=== PATIENT | female | born 2000 | race Caucasian/White ===

== ENCOUNTER 2020-10-19 11:24 | Outpatient (CLI) | payer OTHER, SELFPAY ==
--- NOTE | ~2020-10-19 | XR_ITS ---
EXAMINATION: XR abdomen obstructive series EXAM DATE: 10/19/2020 11:49 INDICATION: Unspecified abdominal pain, bilateral lower quadrant pain. TECHNIQUE: Frontal upright projection of the upper abdomen, frontal projection of the lower abdomen f or interpretation. Comparison is made to prior examination from 02/02/2019. FINDINGS: There is expected amount of colonic stool and gas. No small bowel dilation, nonobstructiv e bowel gas pattern. There are no suspicious calcifications identified. There is no organomegaly suspected. The bones are unremarkable. There is no free intraperitoneal air. The lung bases are clear. IMPRESSION: Unremarkable abdomen x-ray exam. Reviewed, dictated and finalized at location B.
== END 2020-10-19 11:25 | disposition home or self-care (01) ==
LOC: ANHIMG 11:29
PROVIDERS: PCP Family Medicine; Visit Provider Family Medicine
DX: R10.9 Unspecified abdominal pain (principal)
CPT/HCPCS: 74019